=== PATIENT | female | born 1980 | race Caucasian/White ===

== ENCOUNTER 2016-12-12 20:47 | Emergency (ER) | payer SELFPAY ==
[~2016-12-12] VITALS: Ht 162.6 cm; Wt 117.9 kg
[2016-12-12 22:20] LABS: Basophils # (auto) 0 uL; Basophils % (auto) 0.3 % (0.0-2.0); Eosinophils # (auto) 0.1 uL; Eosinophils % (auto) 0.9 % (0.0-7.0); Hematocrit 41.8 % (36.0-46.0); Hemoglobin 14.2 g/dL (12.2-16.2); Lymphocytes # (auto) 3.2 uL; Lymphocytes % (auto) 25.9 % (10.0-50.0); Mean Corpuscular Hemoglobin 31.4 pg (28.0-32.0); Mean Corpuscular Hgb Conc. 33.9 g/dL (32.0-36.0); Mean Corpuscular Volume 92.6 fL (80.0-100.0); Mean Platelet Volume 8.5 fL (7.4-10.4); Monocytes # (auto) 0.9 uL; Monocytes % (auto) 7.7 % (0.0-12.0); Neutrophils % (auto) 65.2 % (37.0-80.0); Platelet Count (auto) 353 10^3/uL (140-450); Red Cell Distribution Width 14.2 % (11.6-16.0); White Blood Cell 12.3 10^3/uL (4.4-10.8)
[2016-12-12 22:30] LABS: Albumin 3.8 g/dL (3.4-5.0); BUN/Creatinine Ratio 17.5; Bilirubin, Total 0.5 mg/dL (0.2-1.0); Calcium 9.1 mg/dL (8.5-10.1); Potassium 4.2 mmol/L (3.5-5.1); Total Protein 7.9 g/dL (6.4-8.2)
[2016-12-13 00:47] VITALS: BP 125/73
[2016-12-13 01:34] LABS: Urine Bilirubin Negative (Negative); Urine Blood Negative /uL (Negative); Urine Ca Oxalate Crystal FEW (None Seen); Urine Color Yellow (Yellow); Urine Glucose Normal (Normal); Urine Ketone Negative (Negative); Urine Nitrite Negative (Negative); Urine RBC 6 /hpf (0 - 4); Urine Squamous Epithelial Cell MOD /hpf (<5); Urine Urobilinogen Normal (Negative); Urine pH 5.5 (5.0-8.0)
== END 2016-12-13 02:05 | disposition home or self-care (01) ==
LOC: ER 20:53
DX: S09.90XA Unspecified injury of head, initial encounter (principal); K64.9 Unspecified hemorrhoids; F15.10 Other stimulant abuse, uncomplicated; M19.90 Unspecified osteoarthritis, unspecified site; Z87.442 Personal history of urinary calculi; X58.XXXA Exposure to other specified factors, initial encounter; Y93.89 Activity, other specified; Y99.8 Other external cause status; Y92.89 Other specified places as the place of occurrence of the external cause
CPT/HCPCS: 36415; 70450; 80053; 80307; 80320; 81001; 85025

== ENCOUNTER 2018-07-05 00:58 | Emergency (ER) | payer MEDICARE, MEDICAID | END 2018-07-05 01:15 | disposition left against medical advice (07) | LOC: ER 01:07 ==